=== PATIENT | female | born 1970 | race Caucasian/White ===

== ENCOUNTER 2020-01-23 13:11 | Emergency (ER) | payer OTHER, SELFPAY ==
[2020-01-23 13:26] VITALS: BP 144/77; PULSE 84; RESP 16; TEMP 36.7; O2SAT 98
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
== END 2020-01-23 14:03 | disposition home or self-care (01) ==
PROVIDERS: Emergency Provider Nurse Practitioner
DX: M54.2 Cervicalgia (principal); F17.210 Nicotine dependence, cigarettes, uncomplicated
CPT/HCPCS: 99213; G0463

== ENCOUNTER 2020-05-13 14:43 | Emergency (ER) | payer OTHER, SELFPAY ==
--- NOTE | ~2020-05-13 | XR_ITS ---
XR wrist RT min 3V DATE: 05/13/2020 15:31 INDICATION: Injury 10 days ago. Bilateral wrist pain TECHNIQUE: 4 views COMPARISON: None FINDINGS: There is severe narrowing as well as degenerative spurring at the radiocarpal joint. No fracture or dislocation, periosteal reaction or bone destruction. 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
--- NOTE | ~2020-05-13 | XR_ITS ---
XR elbow RT min 3V DATE: 05/13/2020 15:30 INDICATION: Injury 10 days ago. Bilateral elbow pain. TECHNIQUE: 4 views COMPARISON: None FINDINGS: No fracture or dislocation or joint effusion. No periosteal reaction or bone destruction. IMPRESSION: Negative Reviewed, dictated and finalized at location A. IMPRESSION: Negative
--- NOTE | ~2020-05-13 | XR_ITS ---
XR elbow LT min 3V DATE: 05/13/2020 15:30 INDICATION: Injury 10 days ago. Bilateral elbow pain TECHNIQUE: 4 views COMPARISON: None FINDINGS: No fracture or dislocation or joint effusion. No periosteal reaction or bone destruction. IMPRESSION: Negative Reviewed, dictated and finalized at location A. IMPRESSION: Negative
--- NOTE | ~2020-05-13 | XR_ITS ---
XR wrist LT min 3V DATE: 05/13/2020 15:28 INDICATION: Injury 10 days ago. Bilateral wrist pain TECHNIQUE: 4 views COMPARISON: None FINDINGS: No fracture or dislocation, periosteal reaction or bone destruction, erosive change or steve drocalcinosis. IMPRESSION: No fracture or dislocation Reviewed, dictated and finalized at location A. IMPRESSION: No fracture or dislocation
[2020-05-13 14:56] VITALS: BP 126/80; PULSE 88; RESP 20; TEMP 36.9; O2SAT 100
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
== END 2020-05-13 15:58 | disposition home or self-care (01) ==
PROVIDERS: Emergency Provider Nurse Practitioner
DX: S50.10XA Contusion of unspecified forearm, initial encounter (principal); Y08.89XA Assault by other specified means, initial encounter; S63.502A Unspecified sprain of left wrist, initial encounter; M19.031 Primary osteoarthritis, right wrist; F17.210 Nicotine dependence, cigarettes, uncomplicated
CPT/HCPCS: 73080; 73110; 99214; G0463

== ENCOUNTER 2020-08-24 15:26 | Emergency (ER) | payer OTHER, SELFPAY ==
--- NOTE | ~2020-08-24 | XR_ITS ---
EXAMINATION: XR chest 2V EXAM DATE: 08/24/2020 16:04 INDICATION: cough fever x 1 week . TECHNIQUE: Frontal and lateral projections of the chest obtained and reviewed. There is no prior dev dy for comparison. FINDINGS: The lungs are clear. There are no pleural effusions. The cardiomediastinal silhouette is within normal limits. There is no pneumothorax suspected. The bones and soft tissues are unremarkab le. IMPRESSION: No acute cardiopulmonary findings. Reviewed, dictated and finalized at location A. [employer]
[2020-08-24 15:28] VITALS: BP 126/68; PULSE 117; RESP 18; TEMP 36.8; O2SAT 100
--- NOTE | 2020-08-24 15:43 | ED.URI ---
HPI - URI/Sore Throat General Chief Complaint: Upper Respiratory Infection Stated Complaint: fever/tired Time Seen by Provider: 08/24/20 15:43 Source: patient Limitations: no limitations History of Present Illness HPI Narrative: Wanda Vargas is a 50 yo female with a PMH of lung mass of unknown etiology, to [facility] with complaint of fever, body aches, cough, congestion, with symptoms started 2 to 3 days ago. 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 EYES: Denies visual changes, redness, discharge. ENT: Denies rhinorrhea, congestion, sore throat, otalgia. CARDIOVASCULAR: Denies chest pain, palpitations, edema. RESPIRATORY: Denies dyspnea, wheezing, cough GASTROINTESTINAL: Denies abdominal pain, nausea, vomiting, diarrhea. GENITOURINARY: Denies dysuria, hematuria, abnormal discharge SKIN: Denies rash or itching. NEUROLOGIC: Denies numbness, or focal weakness. PSYCHIATRIC: Denies anxiety or depression. PMFSH Past Medical History Medical History Mass of lung Family History Family History Other No active medical problems Social History Social History Smoking packs per day: 0.5 Smoking cigarettes per day: 10.0 Smoking status: Current every day smoker Tobacco type: cigarettes Alcohol intake: never Gender identity (if verbalized by the patient): Female Comments At time of signature, I agree with nursing past medical, surgical, social and family history. There is no relevant family history pertinent to the presenting complaint. Exam Narrative: Exam Narrative: GENERAL: This is a well-nourished, well-developed patient, in m moderate distress. HEAD: normocephalic, atraumatic. EYES: Sclera clear/white. Vision is grossly intact. EARS: External ears normal, auditory canals clear and without drainage, TMs normal without perforation. Hearing grossly intact. NOSE: External nose normal without nasal discharge, nares without redness, no rhinorrhea. THROAT: Mucous membranes moist, posterior pharynx pink NECK: Neck supple, tender submandibular lymph nodes CARDIOVASCULAR: Tachycardic rate and rhythm without murmurs, gallops, or rubs. RESPIRATORY: Diminished to auscultation. Breath sounds equal bilaterally. No wheezes, rales, or rhonchi. GASTROINTESTINAL: Abdomen soft, non-tender, SKIN: warm, intact with no suspicious lesions or rash, good texture and turgor. NEURO: awake, alert, and oriented to person, place and time. There were no obvious focal neurologic abnormalities. Steady gait EXTREMITIES: Normal range of motion. BACK: Nontender without deformity Course Course Emergency Course: Has had fever congestion difficulty swallowing and shortness of breath for the last 2 to 3 days, states she feels ill Negative strep test, patient is complaining of shortness of breath and has questionable diminished breath sounds on right side chest x-ray done- no acute pulmonary processes UA done - Started on albuterol Tessalon Perles prednisone and Cepacol lozenges. Ibuprofen 600 mg for pain;will be sent for Covid testing-discussed quarantining and length of time that she will have to quarantine regardless if she has a positive or negative Covid test Vital Signs Vital signs: Vital Signs Temperature 98.3 F 08/24/20 15:28 Pulse Rate 117 H 08/24/20 15:28 Respiratory Rate 18 08/24/20 15:28 Blood Pressure 126/68 08/24/20 15:28 Pulse Oximetry 100 08/24/20 15:28 Temperature 98.3 F 08/24/20 15:28 Pulse Rate 117
[2020-08-24] MEDS: predniSONE 20 MG TABLET 60 MG PO (16:08)
== END 2020-08-24 17:00 | disposition home or self-care (01) ==
PROVIDERS: Emergency Provider Nurse Practitioner
DX: J06.9 Acute upper respiratory infection, unspecified (principal); Z20.828 Contact with and (suspected) exposure to other viral communicable diseases; F17.210 Nicotine dependence, cigarettes, uncomplicated; R91.8 Other nonspecific abnormal finding of lung field
CPT/HCPCS: 71046; 87077; 87081; 87086; 87088; 87186; 87880; 99213; G0463; J7512

== ENCOUNTER 2021-03-01 13:00 | Emergency (ER) | payer OTHER, SELFPAY ==
[2021-03-01 13:10] VITALS: BP 141/68; PULSE 90; RESP 20; TEMP 36.3; O2SAT 99
--- NOTE | 2021-03-01 13:19 | ED.BACK ---
HPI - Back Pain/Injury General Chief Complaint: Back Pain/Injury Stated Complaint: lower back pain Time Seen by Provider: 03/01/21 13:10 Source: patient and RN notes reviewed Mode of arrival: ambulatory Limitations: no limitations History of Present Illness HPI Narrative: Patient presents today complaining of low back pain x4 days after moving heavy cement statues in her yard. Denies radiation of pain. Denies numbness or tingling in the genitals or extremities. Denies any loss of bowel or bladder control. Currently rates her pain 7/10 and has been taking Aleve, ibuprofen, Tylenol, and leftover tramadol without relief. MD elicited complaint: back pain Related Data Home Medications Medication Instructions Recorded Confirmed omeprazole 20 mg DAILY 03/01/21 03/01/21 Allergies Allergy/AdvReac Type Severity Reaction Status Date / Time Penicillins Allergy Unknown Verified 07/19/16 12:23 Review of Systems Review of Systems: Narrative: CONSTITUTIONAL: Denies body aches, fever, chills, or sweats. EYES: Denies visual changes, redness, or discharge. ENT: Denies rhinorrhea, congestion, sore throat, or otalgia. CARDIOVASCULAR: Denies chest pain, palpitations, or edema. RESPIRATORY: Denies cough or dyspnea. GASTROINTESTINAL: Denies abdominal pain, nausea, vomiting, or diarrhea. GENITOURINARY: Denies dysuria or hematuria. SKIN: Denies rash, itching, or wounds. MUSCULOSKELETAL: Denies joint pain, or myalgia.+ Low back pain NEUROLOGIC: Denies headache, numbness, tingling, or weakness. PSYCH: Denies depression or anxiety. [facility] Past Medical History Medical History (Updated 03/01/21 @ 13:46 by Divine Hines, [facility], ) Anxiety Bipolar disorder Cervical radiculopathy Lumbar radiculopathy Mass of lung PTSD (post-traumatic stress disorder) Family History Family History Other No active medical problems Social History Social History Smoking packs per day: 0.5 Smoking cigarettes per day: 10.0 Smoking status: Current every day smoker Tobacco type: cigarettes Alcohol intake: never Gender identity (if verbalized by the patient): Female Comments At time of signature, I have reviewed and agree with nursing past medical, surgical, social and family history unless otherwise noted. Please see nursing chart for further information. There is no relevant family history pertinent to the presenting complaint Exam Narrative: Exam Narrative: GENERAL: Well-appearing, well-nourished, and in no acute distress. HEAD: Normocephalic, atraumatic. EYES: EOMI. No redness or drainage. Conjunctivae normal. ENT: Mucous membranes pink and moist. NECK: Normal AROM. CHEST: No respiratory distress. MUSCULOSKELETAL: No bony tenderness of the thoracic or lumbar spine. Mild bilateral lower lumbar paraspinal muscle tenderness. No SI joint tenderness. Distal sensation intact. Saddle sensation intact. Capillary refill normal. Foot push and pulls equal and strong. EXTREMITIES: Normal range of motion. No edema. SKIN: Warm, dry, no rash. Capillary refill normal. Normal skin turgor. NEURO: No focal deficits. Alert and oriented x3. Gait steady. PSYCH: Normal affect. No signs of depression or anxiety. Course Vital Signs Vital signs: Vital Signs Temperature 97.4 F L 03/01/21 13:10 Pulse Rate 90 03/01/21 13:10 Respiratory Rate 20 03/01/21 13:10 Blood Pressure 141/68 H 03/01/21 13:10 Pulse Oximetry 99 03/01/21 13:10 Temperature 97.4 F L 03/01/21 13:10 Pulse Rate 90 03/01/21 13:10 Respiratory Rate 20 03/01/21 13:10 Blood Pressure 141/68 H 03/01/21 13:10 Pulse Oximetry 99 03/01/21 13:10 Reviewed. Pt has been instructed to follow up with her PCP regarding her elevated blood pressure today. MDM - Back Pain/Injury Differential Diagnosis Differential diagnosis: Likely lumbar radiculopat
== END 2021-03-01 13:24 | disposition home or self-care (01) ==
PROVIDERS: Emergency Provider Nurse Practitioner
DX: S39.012A Strain of muscle, fascia and tendon of lower back, initial encounter (principal); X50.0XXA Overexertion from strenuous movement or load, initial encounter; M54.12 Radiculopathy, cervical region; M54.16 Radiculopathy, lumbar region; F17.210 Nicotine dependence, cigarettes, uncomplicated
CPT/HCPCS: 99213; G0463

== ENCOUNTER 2021-03-31 02:37 | Observation (INO) | payer OTHER, SELFPAY ==
[2021-03-31] VITALS (13 sets, daily range): BP systolic 86–113; BP diastolic 52–76; PULSE 82–127; RESP 15–26; TEMP 36.8–38; O2SAT 93–100; BMI 21.4
--- NOTE | ~2021-03-31 | CT_ITS ---
EXAMINATION: CT soft tissue neck chest wo EXAM DATE: 04/01/2021 11:04 INDICATION: Neck pain history of lung mass. Sore throat. TECHNIQUE: Spiral CT of the neck and chest was performed without contrast. Axial, coronal and sagit vinicius images of the neck were reviewed. Axial, coronal and sagittal images of the chest were reviewed. Coronal maximum intensity pixel images of chest reviewed. The dose-length product (DLP) for this e xamination was 648.63 mGy-cm. The exposure was tailored according to patient size (auto mA exposure control), and iterative reconstruction (ASIR) was used as additional dose reduction technique. There is no prior study for comparison. FINDINGS: NECK: The thyroid gland is unremarkable. The submandibular and parotid glands are symmetric. Ther e is no cervical lymphadenopathy. There are no masses identified. Epiglottis is normal in thickness . The airway is unremarkable. Parapharyngeal and pre-glottic fat planes are preserved. Limited ev aluation of cervical vessels on this noncontrast study. The orbits are unremarkable. Visualized s inuses and mastoid air cells are well aerated. Advanced lower cervical disc disease. CHEST: No suspicious lung opacities. Trace bilateral pleural effusions and dependent bibasilar subse gmental atelectasis. Tracheobronchial tree is patent. There is no mediastinal, hilar or axillary l ymphadenopathy. There is no pneumothorax. Heart normal in size. No evidence of coronary arteria l calcification. Mildly indistinct fat planes in the retroperitoneum, along the right kidney and gal lbladder, nonspecific. There is thoracic spondylosis without osteoblastic or osteolytic lesions iden tified. IMPRESSION: 1. Trace pleural effusions and adjacent subsegmental atelectasis. 2. Nonspecific indistinct retroperitoneal, right upper quadrant fat planes. Probably reactive but ar e there any abdominal symptoms or tenderness? Reviewed, dictated and finalized at location B. IMPRESSION: 1. Trace pleural effusions and adjacent subsegmental atelectasis. 2. Nonspecific indistinct retroperitoneal, right upper quadrant fat planes. Pr obably reactive but are there any abdominal symptoms or tenderness?
--- NOTE | ~2021-03-31 | XR_ITS ---
EXAMINATION: XR chest 2V 03/31/2021 03:23 INDICATION: Fever, chills and body aches PROCEDURE: 2 view chest COMPARISON: 08/24/2020 FINDINGS: The lungs are clear. The cardiomediastinal silhouette is within normal limits. There are no pleural effusions. There is no pneumothorax suspected. IMPRESSION: 1: NO ACUTE CARDIOPULMONARY DISEASE. Reviewed, dictated and finalized at location A.
--- NOTE | 2021-03-31 02:41 | ED.FEVER ---
HPI - Fever General Chief Complaint: Fever Stated Complaint: fever for a week Time Seen by Provider: 03/31/21 02:41 Source: patient Mode of arrival: ambulatory Limitations: no limitations History of Present Illness HPI Narrative: Patient is a 51-year-old female with a history of anxiety, bipolar disorder who presents for evaluation of fever, arthralgias, malaise, nausea and vomiting. Patient at the time of my assessment is quite tearful, states that she has pain all over her body. She reports fever maximum temperature 104 Fahrenheit which has been intermittent over the past 7 days. She reports urinary hesitancy and dysuria. She denies any upper abdominal pain. No chest pain. She reports headache pain, soreness in her back and soreness in her extremities. She denies any neck pain, vision changes. She reports sore throat, congestion and dry cough. Denies recent sick contacts. She is not vaccinated for Covid. Related Data Home Medications Medication Instructions Recorded Confirmed omeprazole 20 mg DAILY 03/01/21 03/01/21 Allergies Allergy/AdvReac Type Severity Reaction Status Date / Time Penicillins Allergy Unknown Anaphylactic Verified 03/31/21 02:47 Shock Review of Systems Review of Systems: Narrative: CONSTITUTIONAL: Reports fever and chills EYES: Denies visual changes, redness, or discharge. ENT: Reports rhinorrhea, congestion and sore throat CARDIOVASCULAR: Denies chest pain, palpitations, or edema. RESPIRATORY: Reports dry cough GASTROINTESTINAL: Denies abdominal pain, reports nausea and vomiting GENITOURINARY: Reports dysuria. Denies hematuria. Reports urinary hesitancy. SKIN: Denies rash or itching. MUSCULOSKELETAL: Reports back pain NEUROLOGIC: Reports headache without numbness or weakness PSYCHIATRIC: Reports anxiety PMFSH Past Medical History Medical History Anxiety Bipolar disorder Cervical radiculopathy Lumbar radiculopathy Mass of lung PTSD (post-traumatic stress disorder) Family History Family History Other No active medical problems Social History Social History Smoking packs per day: 0.5 Smoking cigarettes per day: 10.0 Smoking status: Current every day smoker Tobacco type: cigarettes Alcohol intake: never Gender identity (if verbalized by the patient): Female Sexual Orientation (if Verbalized by the Patient): Straight or Heterosexual Exam Narrative: Exam Narrative: GENERAL: Awake, alert, conversant, tearful HEAD: Normocephalic, atraumatic. EYES: PERRLA and EOMI. ENT: Nares clear, no rhinorrhea or epistaxis. Mucous membranes moist. NECK: Supple. CHEST: No respiratory distress, breathing even and non labored HEART: Tachycardic rate, sinus rhythm ABDOMEN:Non distended, tender throughout, no guarding, bilateral flank tenderness EXTREMITIES: Normal range of motion. No edema. SKIN: Warm, dry, no rash. NEURO:No focal deficits. Alert and oriented x3 Course Vital Signs Vital signs: Vital Signs Temperature 38.0 C H 03/31/21 02:44 Pulse Rate 127 H 03/31/21 02:44 Respiratory Rate 26 H 03/31/21 02:44 Blood Pressure 112/76 03/31/21 02:44 Pulse Oximetry 93 03/31/21 02:44 Temperature 37.6 C H 03/31/21 04:30 Pulse Rate 109 H 03/31/21 04:30 Respiratory Rate 15 03/31/21 04:30 Blood Pressure 113/68 03/31/21 04:30 Pulse Oximetry 100 03/31/21 04:30 MDM - Fever MDM Narrative Medical decision making narrative: Patient presenting for evaluation of general malaise, nausea vomiting, urinary symptoms. At the time of assessment, ABCs are intact and vital signs are notable for tachycardia, mild tachypnea and patient is febrile. Given concern for sepsis, IV access was obtained and blood cultures were drawn. Patient was given a 30 mL/kg fluid bolus. Patient was given IV antiemetic, pain
--- NOTE | 2021-03-31 02:51 | ECG_ITS ---
Measurements Intervals Miller Rate: 109 P: 73 SD: 114 QRS: 42 QRSD: 81 T: 66 QT: 326 QTc: 439 Interpretive Statements SINUS TACHYCARDIA WITH SHORT SD INTERVAL BASELINE ARTIFACT- V4-V5 ABNORMAL ECG Electronically Signed On 03-31-2021 6:35:36 CDT by Coleman Ramos D.O.
[2021-03-31 03:15] LABS: Basophils Absolute Auto 0.1 K/mm3 (0.0-0.1); Basophils Percent Auto 0.4 % (0.2-1.2); Eosinophils Percent Auto 0.1 % (0-4.4); Hematocrit 38.6 % (37.0-47.0); Hemoglobin 12.8 g/dL (12.0-15.0); Immature Granulocyte Absolute 0.25 K/mm3 (0.00-0.031); Immature Granulocyte Percent A 1.1 % (0-0.5); Lymphocytes Absolute Auto 3.42 K/mm3 (0.9-3.2); Mean Corpuscular HGB Conc 33.2 g/dl (32-36); Mean Corpuscular Hemoglobin 31.1 pg (26-34); Mean Corpuscular Volume 93.9 fl (80-100); Mean Platelet Volume 9.7 fl (7.4-10.4); Monocytes Absolute Auto 2.3 K/mm3 (0.1-0.6); Monocytes Percent Auto 10.3 % (2.6-8.5); Neutrophils Absolute Auto 16.6 K/mm3 (1.3-6.7); Neutrophils Percent Auto 73.1 % (45.5-73.1); Platelet Count Result 359 k/mm3 (150-375); Red Blood Count 4.11 M/mm3 (4.2-5.4); Red Cell Distribution Width 12.7 % (11.5-14.5); White Blood Count 22.8 K/mm3 (4.5-10.0)
[2021-03-31 03:28] LABS: Add Urine Microscopic? YES; Appearance Urine Cloudy (Clear); Bacteria Urine Trace /hpf; Bilirubin Urine Negative (Negative); Blood Urine 2+ (Negative); Color Urine Yellow (Yellow); Glucose Urine UA Negative (Negative); Ketones Urine Negative (Negative); Leukocyte Esterase Ur Negative LEU/UL (Negative); Mucus Urine Rare /lpf; Nitrate Urine Positive (Negative); Protein Urine 2+ mg/dL (Negative); RBC Urine 21-50 /hpf (0-2); Specific Grav Ur 1.019 (1.001-1.035); Squamous Epithelial Cell Urine Many /hpf (Few); Urobilinogen Urine Negative mg/dL (<2.0)
[2021-03-31] MEDS: MORPHINE SULFATE (*CRX) 4 MG/ML INJ IV PUSH ×4 (03:29→23:19)
[2021-03-31 03:37] LABS: Troponin I < 0.012 ng/mL (0.000-0.034)
[2021-03-31 04:04] LABS: Lactic Acid Reflex 1.5 mmol/L (0.7-2.1)
[2021-03-31 04:05] LABS: Alanine Aminotransferase 22 U/L (4-35); Albumin Level 4.2 g/dL (3.5-5.1); Alkaline Phosphatase 84 U/L (38-126); Anion Gap 12 mmol/L (8-16); Aspartate Amino Transferase 25 U/L (14-36); Bilirubin,Total 0.5 mg/dL (0.2-1.3); Blood Urea Nitrogen 11 mg/dL (7-17); CRP 24.6 mg/dL (<1.0); Carbon Dioxide 22 mmol/L (22-30); Chloride 98 mmol/L (98-107); Estimated CRCL calculation 67 ml/min; Estimated Glomerular Filt Rate > 60; Glucose 215 mg/dL (65-110); Potassium 3.7 mmol/L (3.4-5.0); Sodium 132 mmol/L (137-145)
[2021-03-31] MEDS: CIPROFLOXACIN 400 MG/D5W 200ML 200 ML 200 MG IVPB ×2 (04:29→15:38)
[2021-03-31] MEDS: SODIUM CHLORIDE 0.9% IV 1,000 ML 125 ML IV CONT ×2 (07:29→17:28)
--- NOTE | 2021-03-31 09:00 | ADMGEN ---
This patient, Wanda Vargas, was admitted to 3 [facility] Surg Room 302-01. Patient/family oriented to hospital policies and general routines including ID bracelet, bed and alarms, visiting hours, pain management, procedures, bathroom and other care routines, personal items, smoking policy, room service/diet, and visiting hours. Information on how to activate the Rapid Response Team has been discussed. Patient/Family are encouraged to report perceived risks to care and to ask questions if they do not understand what they are told or what they should do.
[2021-03-31 15:38] LABS: SARS-CoV-2 RNA PCR Negative
--- NOTE | 2021-03-31 16:50 | PM.IMHP ---
H&P: HPI History of Present Illness Date/Time: 03/31/21 16:50 Chief Complaint: Fever Narrative: Patient is a 51-year-old female with a history of anxiety, bipolar disorder who presents for evaluation of fever, arthralgias, malaise, nausea and vomiting. she reports a temperature of 104? F and has been going on since past 7 days. She also complains generalized body ache and soreness in her extremities and tiredness and fatigue. She was having some sore throat and neck pain for which she was seen ENT. 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 she is not vaccinated for COVID. Review of Systems Review of Systems: Narrative: - CONSTITUTIONAL: Denies weight loss, reports fever and chills. - HEENT: Denies changes in vision and hearing - RESPIRATORY: Denies SOB and cough. - CV: Denies palpitations and CP. - GI: Denies abdominal pain, nausea, vomiting and diarrhea. - : Denies dysuria and urinary frequency. - MSK: Denies myalgia and joint pain. - SKIN: Denies rash and pruritus. - NEUROLOGICAL: Denies headache and syncope. - PSYCHIATRIC: Denies recent changes in mood. Denies anxiety and depression. All systems reviewed & are unremarkable except as noted in HPI and below PMFSH Past Medical History Medical History (Updated 03/31/21 @ 16:55 by José Miguel Collier MD) Anxiety Bipolar disorder Cervical radiculopathy Lumbar radiculopathy Mass of lung PTSD (post-traumatic stress disorder) Family History Family History (Updated 03/31/21 @ 10:01 by Yanet Ware RN) Father Diabetes mellitus Social History Social History Smoking packs per day: 1 Smoking cigarettes per day: 20.0 Smoking status: Current every day smoker Tobacco type: cigarettes and e-cigarettes/vaping Alcohol intake: former Substance use: never Gender identity (if verbalized by the patient): Female Sexual Orientation (if Verbalized by the Patient): Straight or Heterosexual Spiritual care concerns: No Meds Home Medications and Allergies Home Medications Medication Instructions Recorded Confirmed Type cyclobenzaprine 10 mg PO TID PRN #20 tablet 03/01/21 03/31/21 Rx omeprazole 20 mg DAILY 03/01/21 03/31/21 History Allergies Allergy/AdvReac Type Severity Reaction Status Date / Time Penicillins Allergy Unknown Anaphylactic Verified 03/31/21 09:28 Shock Vital Signs Vital Signs - 24 hr 03/31/21 02:44 03/31/21 04:30 03/31/21 06:30 Temperature 100.4 F H 99.7 F H 99.0 F Pulse Rate 127 H 109 H Respiratory Rate 26 H 15 Blood Pressure 112/76 113/68 Pulse Oximetry 93 100 03/31/21 06:46 03/31/21 07:31 03/31/21 08:21 Temperature 98.8 F Pulse Rate 92 90 88 Respiratory Rate 22 H 15 16 Blood Pressure 90/67 L 95/65 L 86/57 L Pulse Oximetry 96 100 97 03/31/21 09:04 03/31/21 09:39 03/31/21 14:00 Temperature 98.2 F 98.3 F 100 F H Pulse Rate 87 82 99 Respiratory Rate 17 16 20 Blood Pressure 87/61 L 103/52 L 110/70 Pulse Oximetry 97 98 96 03/31/21 14:55 03/31/21 15:29 Temperature 100.0 F H 99.6 F Pulse Rate Respiratory Rate Blood Pressure Pulse Oximetry Exam Narrative: Exam Narrative: GENERAL: The patient is well developed, not in acute distress HEENT: Nonicteric sclerae, PERRLA, EOMI. Oropharynx clear. Moist mucous membranes. Conjunctivae appear well perfused. CHEST: Chest wall is nontender. HEART: Regular rate and rhythm without murmur, rubs, or gallops LUNGS: Clear to auscultation bilaterally. no respiratory distress ABDOMEN: Soft, positive bowel sounds, non-tender, no organomegaly. SKIN: No rash, no excessive bruising, petechiae, or purpura. NEUROLOGIC: Cranial nerves II-XII intact, alert and oriented x 3, no gross motor deficits EXTREMITIES: no edema, cyanosis or clubbing H&P: Results Labs Labs: Short CBC 03/31/21 Range/Units 03:06 WBC 22.8 H (4.5-10.0
[2021-03-31] MEDS: metroNIDAZOLE 500 MG/ISO 100ML 500 MG/100 ML BAG 100 MG IVPB (17:27)
[2021-04-01] MEDS: metroNIDAZOLE 500 MG/ISO 100ML 500 MG/100 ML BAG 100 MG IVPB ×2 (01:14→10:13)
[2021-04-01] MEDS: SODIUM CHLORIDE 0.9% IV 1,000 ML 125 ML IV CONT ×2 (01:15→13:09)
[2021-04-01] MEDS: ACETAMINOPHEN 500 MG TABLET 1000 MG PO (03:10)
[2021-04-01] MEDS: CIPROFLOXACIN 400 MG/D5W 200ML 200 ML 200 MG IVPB ×2 (03:11→15:35)
[2021-04-01 06:00] VITALS: BP 94/60; PULSE 91; RESP 18; TEMP 36.3; O2SAT 97
[2021-04-01 08:49] VITALS: BP 100/60
[2021-04-01 09:10] LABS: Basophils Absolute Auto 0.1 K/mm3 (0.0-0.1); Basophils Percent Auto 0.4 % (0.2-1.2); Eosinophils Absolute Auto 0.2 K/mm3 (0-0.3); Eosinophils Percent Auto 1.6 % (0-4.4); Hematocrit 32.5 % (37.0-47.0); Hemoglobin 10.6 g/dL (12.0-15.0); Immature Granulocyte Absolute 0.04 K/mm3 (0.00-0.031); Immature Granulocyte Percent A 0.4 % (0-0.5); Lymphocytes Absolute Auto 2.62 K/mm3 (0.9-3.2); Lymphocytes Percent Auto 23.3 % (18.3-44.2); Mean Corpuscular HGB Conc 32.6 g/dl (32-36); Mean Corpuscular Hemoglobin 30.7 pg (26-34); Mean Corpuscular Volume 94.2 fl (80-100); Mean Platelet Volume 9.7 fl (7.4-10.4); Monocytes Absolute Auto 1.2 K/mm3 (0.1-0.6); Monocytes Percent Auto 10.8 % (2.6-8.5); Neutrophils Absolute Auto 7.1 K/mm3 (1.3-6.7); Neutrophils Percent Auto 63.5 % (45.5-73.1); Platelet Count Result 278 k/mm3 (150-375); Red Blood Count 3.45 M/mm3 (4.2-5.4); Red Cell Distribution Width 12.6 % (11.5-14.5); White Blood Count 11.2 K/mm3 (4.5-10.0)
[2021-04-01 09:40] LABS: Anion Gap 7 mmol/L (8-16); Blood Urea Nitrogen 7 mg/dL (7-17); Calcium 8.3 mg/dL (8.4-10.2); Carbon Dioxide 22 mmol/L (22-30); Chloride 108 mmol/L (98-107); Estimated CRCL calculation 97 ml/min; Estimated Glomerular Filt Rate > 60; Glucose 127 mg/dL (65-110); Potassium 3.7 mmol/L (3.4-5.0); Sodium 137 mmol/L (137-145)
[2021-04-01 10:07] VITALS: BP 106/60
[2021-04-01 10:08] VITALS: TEMP 37.4
[2021-04-01] MEDS: ENOXAPARIN 40 MG/0.4 ML SYRINGE SUB-Q (10:12)
[2021-04-01] MEDS: PANTOPRAZOLE 40 MG TABLET BY MOUTH (10:12)
[2021-04-01] MEDS: MORPHINE SULFATE (*CRX) 4 MG/ML INJ IV PUSH (10:13)
[2021-04-01 14:00] VITALS: BP 99/60; PULSE 70; RESP 18; TEMP 36.4; O2SAT 98
--- NOTE | 2021-04-01 17:22 | PM.IMPN ---
Progress Note: A&P Assessment and Plan (1) Sepsis: Qualifiers: Sepsis acute organ dysfunction status: without acute organ dysfunction Sepsis type: sepsis due to unspecified organism Qualified Code(s): A41.9 - Sepsis, unspecified organism Code(s): A41.9 - Sepsis, unspecified organism Status: Acute (2) UTI (urinary tract infection): Qualifiers: Hematuria presence: with hematuria Urinary tract infection type: acute cystitis Qualified Code(s): N30.01 - Acute cystitis with hematuria Code(s): N39.0 - Urinary tract infection, site not specified Status: Acute (3) Neck pain: Code(s): M54.2 - Cervicalgia Status: Acute (4) Anxiety: Code(s): F41.9 - Anxiety disorder, unspecified Status: Inactive (5) Bipolar disorder: Code(s): F31.9 - Bipolar disorder, unspecified Status: Inactive (6) Cervical radiculopathy: Code(s): M54.12 - Radiculopathy, cervical region Status: Inactive (7) Mass of lung: Code(s): R91.8 - Other nonspecific abnormal finding of lung field Status: Inactive (8) Lumbar radiculopathy: Code(s): M54.16 - Radiculopathy, lumbar region Status: Inactive Additional Plan sepsis with mild hypotension improved with IV resuscitation in the ER will continue to monitor pancultured likely source genitourinary with positive UA. COVID swabbed awaiting resolved. Leukocytosis at 22,000 hyperglycemia noted as well mild hyponatremia at 132. elevated CRP at 24.6 normal lactic acid and negative troponin strep screen done in the ER presumptive negative Leukocytosis improved down to 11,[address] neck /chest reviewed no signs of mass or any underlying abscess in the throat or lymphadenopathy noted remains on Flagyl for anaerobic coverage allergy to penicillin Chest x-ray with no acute cardiopulmonary abnormality urinary tract infection on Cipro urine culture growing E coli await sensitivity History of lung mass CT chest reveals no lung mass Recent history of sore throat and continued neck pain CT neck reviewed which is unremarkable DVT prophylaxis Lovenox Full code Subjective Date/time seen: 04/01/21 17:22 Interval history: still does not feel too well. no fever since yesterday afternoon . No nausea vomiting appetite is poor diffuse body aches noted no shortness of breath or chest pain COVID swab came back negative Review of Systems Review of Systems: All systems reviewed & are unremarkable except as noted in HPI and below Exam Narrative: GENERAL: The patient is well developed, not in acute distress HEENT: Nonicteric sclerae, PERRLA, EOMI. Oropharynx clear. Moist mucous membranes. Conjunctivae appear well perfused. CHEST: Chest wall is nontender. HEART: Regular rate and rhythm without murmur, rubs, or gallops LUNGS: Clear to auscultation bilaterally. no respiratory distress ABDOMEN: Soft, positive bowel sounds, non-tender, no organomegaly. SKIN: No rash, no excessive bruising, petechiae, or purpura. NEUROLOGIC: Cranial nerves II-XII intact, alert and oriented x 3, no gross motor deficits EXTREMITIES: no edema, cyanosis or clubbing Objective Data Vital Signs Vital Signs: Vital Signs - 24 hr 03/31/21 20:00 03/31/21 22:00 04/01/21 06:00 Temperature 99.0 F 97.4 F L Pulse Rate 97 91 Respiratory Rate 20 18 18 Blood Pressure 103/64 94/60 L Pulse Oximetry 99 97 04/01/21 08:49 04/01/21 10:07 04/01/21 10:08 Temperature 99.3 F Pulse Rate Respiratory Rate Blood Pressure 100/60 106/60 Pulse Oximetry 04/01/21 14:00 Temperature 97.6 F Pulse Rate 70 Respiratory Rate 18 Blood Pressure 99/60 L Pulse Oximetry 98 Intake/Output Intake/Output: Intake & Output 03/29/21 03/30/21 03/31/21 04/01/21 23:59 23:59 23:59 23:59 Intake Total 4162 3760 Balance 4162 3760 Meds/Results Medications: Active Medications Generic Name Dose Route Start Last Admin Trade Name Freq
--- NOTE | 2021-04-01 18:23 | PM.DS ---
DS: Admitting Diagnosis Admitting Diagnosis sepsis DS: Discharge Diagnosis Discharge Diagnosis (1) Sepsis: Qualifiers: Sepsis acute organ dysfunction status: without acute organ dysfunction Sepsis type: sepsis due to unspecified organism Qualified Code(s): A41.9 - Sepsis, unspecified organism Code(s): A41.9 - Sepsis, unspecified organism Status: Acute (2) UTI (urinary tract infection): Qualifiers: Hematuria presence: with hematuria Urinary tract infection type: acute cystitis Qualified Code(s): N30.01 - Acute cystitis with hematuria Code(s): N39.0 - Urinary tract infection, site not specified Status: Acute (3) Neck pain: Code(s): M54.2 - Cervicalgia Status: Acute DS: Summary Hospital Course Hospital Course: Patient is a 51-year-old female with a history of anxiety, bipolar disorder who presents for evaluation of fever, arthralgias, malaise, nausea and vomiting. she reports a temperature of 104? F and has been going on since past 7 days. She also complains generalized body ache and soreness in her extremities and tiredness and fatigue. She was having some sore throat and neck pain for which she was seen ENT. 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 she is not vaccinated for COVID. Upon admission she was noted to be septic with lowest blood pressure and tachycardia. His given IV fluid resuscitation in the ER with improvement in her blood pressure. She was pancultured and her UA was positive for UTI. With her history of neck pain strep throat was done which came back negative. See also subsequently had a CT neck with her ongoing neck pain which came back negative. She also reports history of lung mass which she had never followed up and hand CT chest was done which came back negative for any mass. She had initial leukocytosis of 22,000 on admission with mild hyponatremia of 132 an elevated CRP at 24.6 with normal lactic acid and negative troponin. She was started on ciprofloxacin as she has allergy to penicillin. With her neck pain she did have empirically started on Flagyl for anaerobic problem is. Her leukocytosis improved down to 11,000 the next day. And her fever started to improve as well. COVID swab was done which came back negative. She was advised to continue further treatment is as inpatient care however she was adamant at getting discharge and hence she left against medical advise. Time Spent with Patient Time attestation: Total time spent providing and/or coordinating discharge services:40 mins Exam Narrative: GENERAL: The patient is well developed, not in acute distress HEENT: Nonicteric sclerae, PERRLA, EOMI. Oropharynx clear. Moist mucous membranes. Conjunctivae appear well perfused. CHEST: Chest wall is nontender. HEART: Regular rate and rhythm without murmur, rubs, or gallops LUNGS: Clear to auscultation bilaterally. no respiratory distress ABDOMEN: Soft, positive bowel sounds, non-tender, no organomegaly. SKIN: No rash, no excessive bruising, petechiae, or purpura. NEUROLOGIC: Cranial nerves II-XII intact, alert and oriented x 3, no gross motor deficits EXTREMITIES: no edema, cyanosis or clubbing DS: Data Data Completed and Pending Labs on day of discharge: Labs from last 24 hours 04/01/21 04/01/21 08:50 08:50 WBC 11.2 H RBC 3.45 L Hgb 10.6 L Hct 32.5 L MCV 94.2 MCH 30.7 MCHC 32.6 RDW 12.6 Plt Count 278 MPV 9.7 Immature Gran % (Auto) 0.4 Neut % (Auto) 63.5 Lymph % (Auto) 23.3 [place] % (Auto) 10.8 H Eos % (Auto) 1.6 Baso % (Auto) 0.4 Lymph # (Auto) 2.62 [place] # (Auto) 1.2 H Eos # (Auto) 0.2 Baso # (Auto) 0.1 Abs Immat Gran (auto) 0.04 H Absolute Neuts (auto) 7.1 H Absolute Nucleated RBC 0.0 Nucleated RBC % 0.0 Sodium 137 Potassium 3.7 Chloride 108 H Carbon Dioxide 22 Anion Gap 7 L BUN 7 Creatinine 0.60 L Estim
== END 2021-04-01 18:17 | disposition left against medical advice (07) ==
LOC: ANHED 05:12 → ANH3MEDSUR 11:02
PROVIDERS: Admitting Provider Internal Medicine; Emergency Provider Emergency Medicine; Visit Provider Internal Medicine
DX: A41.9 Sepsis, unspecified organism (principal); N30.01 Acute cystitis with hematuria; R50.9 Fever, unspecified; F41.9 Anxiety disorder, unspecified; F31.9 Bipolar disorder, unspecified; F17.210 Nicotine dependence, cigarettes, uncomplicated; M54.16 Radiculopathy, lumbar region; M54.2 Cervicalgia; R91.8 Other nonspecific abnormal finding of lung field; Z20.822 Contact with and (suspected) exposure to COVID-19
CPT/HCPCS: 36415; 70490; 71046; 71250; 80048; 80053; 81001; 83605; 84484; 85025; 86140; 87040; 87077; 87081; 87086; 87088; 87186; 87880; 93005; 96361; 96365; 96366; 96367; 96372; 96375; 96376; 99285; A9270; C9803; G0378; G0379; J0131; J0744; J1650; J2270; J7030; U0003; U0005

== ENCOUNTER 2021-05-20 17:52 | Emergency (ER) | payer OTHER, SELFPAY ==
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
[2021-05-20 18:05] VITALS: BP 103/76; PULSE 99; RESP 18; TEMP 36.8; O2SAT 99
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
== END 2021-05-20 20:03 | disposition home or self-care (01) ==
PROVIDERS: Emergency Provider Nurse Practitioner
DX: S00.91XA Abrasion of unspecified part of head, initial encounter (principal); M25.562 Pain in left knee; M54.5 Low back pain; M54.2 Cervicalgia; F17.290 Nicotine dependence, other tobacco product, uncomplicated; Y04.8XXA Assault by other bodily force, initial encounter
CPT/HCPCS: 29125; 72050; 72100; 73110; 73564; 99214; A4565; G0463

== ENCOUNTER 2021-05-26 16:32 | Emergency (ER) | payer OTHER, SELFPAY ==
[2021-05-26 16:37] VITALS: BP 115/78; PULSE 89; RESP 18; TEMP 36.7; O2SAT 98
--- NOTE | 2021-05-26 16:47 | ED.URI ---
HPI - URI/Sore Throat General Chief Complaint: Upper Respiratory Infection Stated Complaint: cough/ear pain Source: patient Mode of arrival: ambulatory Limitations: no limitations History of Present Illness HPI Narrative: Patient is a 51-year-old female who presents complaining of right ear pain and cough x4 to 5 days. She reports increased cough for the past 2 to 3 days. Patient reports that she is not vaccinated for Covid. Denies fever or known exposure to Covid. She denies taking [id number] medications prior to arrival. Patient reports she has a history of a lung mass but has not followed up over the past year. She denies all other complaints at this time. MD elicited complaint: cough Related Data Home Medications Medication Instructions Recorded Confirmed omeprazole 20 mg DAILY 03/01/21 05/26/21 Allergies Allergy/AdvReac Type Severity Reaction Status Date / Time Penicillins Allergy Severe Anaphylactic Verified 05/26/21 16:36 Shock Review of Systems Review of Systems: CONSTITUTIONAL: Denies fever, chills, or sweats. EYES: Denies visual changes, redness, or discharge. ENT: Denies rhinorrhea, congestion, sore throat, reports right otalgia CARDIOVASCULAR: Denies chest pain, palpitations, or edema. RESPIRATORY: Reports cough, denies dyspnea. GASTROINTESTINAL: Denies abdominal pain, nausea, vomiting, or diarrhea. GENITOURINARY: Denies dysuria or hematuria. SKIN: Denies rash or itching. MUSCULOSKELETAL: Denies back pain, joint pain, or myalgia. NEUROLOGIC: Denies headache, numbness, dizziness, or weakness. PSYCHIATRIC: Denies anxiety or depression. [facility] Past Medical History Medical History Anxiety Bipolar disorder Cervical radiculopathy Distal radius fracture, right Lumbar radiculopathy Mass of lung PTSD (post-traumatic stress disorder) UTI (urinary tract infection), uncomplicated Surgical History Surgical History History of knee surgery 2013, 2015, 2018 Family History Family History Father Diabetes mellitus Social History Social History Smoking packs per day: 1 Smoking cigarettes per day: 20.0 Smoking status: Current every day smoker Tobacco type: cigarettes and e-cigarettes/vaping Alcohol intake: current Substance use: never Substance use type: does not use Gender identity (if verbalized by the patient): Female Sexual Orientation (if Verbalized by the Patient): Straight or Heterosexual Spiritual care concerns: No Comments At the time of signature, I have reviewed and agree with nursing past medical, surgical, social, and family history unless otherwise noted. Please see nursing chart for further information. There is no relevant family history pertinent to the presenting complaint. Exam Narrative: GENERAL: Well-appearing, well-nourished, and in no acute distress. HEAD: Normocephalic, atraumatic. EYES: EOMI. No redness or drainage. Conjunctiva are normal. ENT: Mucous membranes pink and moist. Nares clear. No rhinorrhea. TMs normal bilaterally. Throat normal. Uvula midline. NECK: AROM. Supple. No lymphadenopathy. CHEST: No respiratory distress. Slightly diminished and coarse right lower lobe. HEART: Regular rate and rhythm. No murmur appreciated. Normal peripheral pulses. EXTREMITIES: Normal range of motion. No edema. SKIN: Warm, dry, no rash. NEURO: No focal deficits. Alert and oriented x3. Gait steady. PSYCH: Normal affect. No signs of depression or anxiety. MDM - URI/Sore Throat MDM Narrative Medical decision making narrative: Rapid Covid negative, Covid PCR sent at this time. Patient refused influenza swab. Patient encouraged to go for chest x-ray today as she has somewhat diminished and coarse lung sounds in right lower lobe. P
[2021-05-27 16:56] LABS: SARS-CoV-2 RNA PCR Negative
== END 2021-05-26 16:58 | disposition home or self-care (01) ==
PROVIDERS: Emergency Provider Nurse Practitioner
DX: J40 Bronchitis, not specified as acute or chronic (principal); J06.9 Acute upper respiratory infection, unspecified; Z20.822 Contact with and (suspected) exposure to COVID-19; F17.210 Nicotine dependence, cigarettes, uncomplicated; M54.12 Radiculopathy, cervical region; M54.16 Radiculopathy, lumbar region
CPT/HCPCS: 87426; 99213; C9803; G0463; U0003; U0005

== ENCOUNTER 2021-09-04 13:02 | Emergency (ER) | payer OTHER, SELFPAY ==
--- NOTE | ~2021-09-04 | XR_ITS ---
EXAMINATION: XR lumbar spine 2-3V EXAM DATE: 09/04/2021 15:03 INDICATION: Fall, back pain. TECHNIQUE: Lumber spine frontal, lateral, lateral L5-S1 projections for interpretation. There is no prior study for comparison. FINDINGS: Moderate to severe loss of the L5-S1 disc height, moderate at L4-5 and mild disc disease a t the other lumbar levels. Mild upper lumbar, moderate lower lumbar facet arthropathy. The vertebral body heights are maintained, no acute fracture is identified. Sacrum, sacroiliac joints, sacral arcua te lines are intact. IMPRESSION: 1. No acute lumbar fracture identified. 2. Overall moderate lower lumbar spondylosis. Reviewed, dictated and finalized at location A. RUMENT TESTER
--- NOTE | ~2021-09-04 | XR_ITS ---
EXAMINATION: XR chest 2V EXAM DATE: 09/04/2021 15:03 INDICATION: Fall, chest pain. TECHNIQUE: Frontal and lateral projections of the chest obtained and reviewed. Comparison is made to prior examination from 03/31/2021. FINDINGS: There are mild bony degenerative changes. There are no acute fractures identified. No conf luent consolidation, pneumothorax or pleural effusion suspected. Cardiomediastinal silhouette is norm al. IMPRESSION: No acute cardiopulmonary findings. Reviewed, dictated and finalized at location A. RT SETTER
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
[2021-09-04 14:20] VITALS: BP 124/77; PULSE 100; RESP 14; TEMP 36.2; O2SAT 97
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
[2021-09-04] MEDS: IBUPROFEN 400 MG TABLET 800 MG PO (15:05)
[2021-09-04] MEDS: HYDROcodone/acetaminophen (*CRX) 5-325 MG TABLET 1 TAB PO (15:05)
== END 2021-09-04 15:40 | disposition home or self-care (01) ==
LOC: ANHED 15:13
PROVIDERS: Emergency Provider Emergency Medicine
DX: S30.0XXA Contusion of lower back and pelvis, initial encounter (principal); M54.50 Low back pain, unspecified; F17.210 Nicotine dependence, cigarettes, uncomplicated; Y04.2XXA Assault by strike against or bumped into by another person, initial encounter
CPT/HCPCS: 71046; 72100; 73110; 73562; 99284; A9270

== ENCOUNTER 2021-09-17 18:57 | Emergency (ER) | payer OTHER, SELFPAY ==
--- NOTE | ~2021-09-17 | XR_ITS ---
XR chest 2V DATE: 09/17/2021 19:18 INDICATION: Central chest pain radiating to the left side and left arm for 4 days TECHNIQUE: PA and lateral chest COMPARISON: 09/04/2021 AP and lateral chest FINDINGS: Normal heart size. No hilar or mediastinal enlargement. Minimal infiltrate or atelectasis is suggested in the lung bases. The lungs otherwise appear clear. N o pleural effusion or pulmonary vascular congestion or pneumothorax. Included skeletal structures are unremarkable. IMPRESSION: Minimal infiltrate or atelectasis at the lung bases Reviewed, dictated and finalized at location J. MOSPRAY OPERATOR
[2021-09-17 19:02] VITALS: BP 113/81; PULSE 90; RESP 16; TEMP 36.3; O2SAT 100
--- NOTE | 2021-09-17 19:02 | ECG_ITS ---
Measurements Intervals [place] Rate: 84 P: 67 MN: 119 QRS: 41 QRSD: 85 T: 58 QT: 363 QTc: 430 Interpretive Statements SINUS RHYTHM WITH SINUS ARRHYTHMIA WITH SHORT [place] INTERVAL POSSIBLE LEFT ATRIAL ENLARGEMENT INCOMPLETE RIGHT BUNDLE BRANCH BLOCK BASELINE ARTIFACT- I, II, III, V4-V6 BORDERLINE ECG Electronically Signed On 09-17-2021 20:30:32 PERSONAL INSURANCE ADVISOR by Coleman Ramos D.O.
[2021-09-17 19:21] LABS: Basophils Absolute Auto 0.1 K/mm3 (0.0-0.1); Basophils Percent Auto 0.7 % (0.2-1.2); Eosinophils Absolute Auto 0.3 K/mm3 (0-0.3); Eosinophils Percent Auto 3.2 % (0-4.4); Hematocrit 38.6 % (37.0-47.0); Hemoglobin 12.8 g/dL (12.0-15.0); Immature Granulocyte Absolute 0.04 K/mm3 (0.00-0.031); Immature Granulocyte Percent A 0.4 % (0-0.5); Lymphocytes Absolute Auto 1.97 K/mm3 (0.9-3.2); Lymphocytes Percent Auto 19.1 % (18.3-44.2); Mean Corpuscular HGB Conc 33.2 g/dl (32-36); Mean Corpuscular Hemoglobin 32.2 pg (26-34); Mean Platelet Volume 9.8 fl (7.4-10.4); Monocytes Absolute Auto 0.8 K/mm3 (0.1-0.6); Monocytes Percent Auto 7.7 % (2.6-8.5); Neutrophils Absolute Auto 7.1 K/mm3 (1.3-6.7); Neutrophils Percent Auto 68.9 % (45.5-73.1); Platelet Count Result 280 k/mm3 (150-375); Red Blood Count 3.98 M/mm3 (4.2-5.4); Red Cell Distribution Width 13.7 % (11.5-14.5); White Blood Count 10.3 K/mm3 (4.5-10.0)
[2021-09-17 19:28] LABS: Alanine Aminotransferase 20 U/L (4-35); Albumin Level 3.8 g/dL (3.5-5.1); Alkaline Phosphatase 78 U/L (38-126); Anion Gap 4 mmol/L (8-16); Aspartate Amino Transferase 35 U/L (14-36); Bilirubin,Total 0.2 mg/dL (0.2-1.3); Blood Urea Nitrogen 19 mg/dL (7-17); Calcium 8.6 mg/dL (8.4-10.2); Carbon Dioxide 28 mmol/L (22-30); Chloride 104 mmol/L (98-107); Estimated CRCL calculation 75 ml/min; Estimated Glomerular Filt Rate > 60; Glucose 162 mg/dL (65-110); Lipase 105 U/L (23-300); Potassium 3.8 mmol/L (3.4-5.0); Sodium 136 mmol/L (137-145)
[2021-09-17 19:34] LABS: INR 0.9; Prothrombin Time 11.7 Seconds (11.1-14.7)
[2021-09-17 19:35] LABS: Partial Thromboplastin Time 25.2 SECONDS (22.3-36.8)
[2021-09-17 19:39] LABS: Troponin I < 0.012 ng/mL (0.000-0.034)
--- NOTE | 2021-09-17 20:21 | PC.NURSE ---
PT STATED THAT SHE WANTED TO LWBS. PT WAS TRIAGED. IV WAS REMOVED PRIOR TO LEAVING.ENCOURAGED TO SEEL TREATMENT IF NEEDED. PT AGREEABLE TO THIS
== END 2021-09-17 20:21 | disposition left against medical advice (07) ==
LOC: ANHED 20:47
PROVIDERS: Emergency Provider General Practice
DX: R07.9 Chest pain, unspecified (principal)
CPT/HCPCS: 36415; 71046; 80053; 83690; 84484; 85025; 85610; 85730; 93005; 99199

== ENCOUNTER 2021-09-22 13:43 | Emergency (ER) | payer OTHER, SELFPAY ==
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
[2021-09-22 13:55] VITALS: BP 139/91; PULSE 82; RESP 18; TEMP 36.3; O2SAT 100
--- NOTE | 2021-09-22 14:02 | ECG_ITS ---
Measurements Intervals [place] Rate: 102 P: 66 [place]: 120 QRS: 51 QRSD: 80 T: 68 QT: 357 QTc: 466 Interpretive Statements SINUS TACHYCARDIA INCOMPLETE RIGHT BUNDLE BRANCH BLOCK BORDERLINE ECG Electronically Signed On 09-22-2021 14:17:40 SUPERVISOR TYPE PHOTOGRAPHY by Coleman Ramos D.O.
[2021-09-22 14:25] LABS: Basophils Absolute Auto 0.1 K/mm3 (0.0-0.1); Eosinophils Absolute Auto 0.2 K/mm3 (0-0.3); Eosinophils Percent Auto 2.6 % (0-4.4); Hematocrit 40.6 % (37.0-47.0); Hemoglobin 13.4 g/dL (12.0-15.0); Immature Granulocyte Absolute 0.01 K/mm3 (0.00-0.031); Immature Granulocyte Percent A 0.1 % (0-0.5); Lymphocytes Absolute Auto 2.71 K/mm3 (0.9-3.2); Lymphocytes Percent Auto 35.4 % (18.3-44.2); Mean Corpuscular Hemoglobin 31.2 pg (26-34); Mean Corpuscular Volume 94.4 fl (80-100); Mean Platelet Volume 9.7 fl (7.4-10.4); Monocytes Absolute Auto 0.6 K/mm3 (0.1-0.6); Monocytes Percent Auto 7.2 % (2.6-8.5); Neutrophils Absolute Auto 4.1 K/mm3 (1.3-6.7); Neutrophils Percent Auto 53.7 % (45.5-73.1); Platelet Count Result 341 k/mm3 (150-375); Red Cell Distribution Width 13.4 % (11.5-14.5); White Blood Count 7.7 K/mm3 (4.5-10.0)
[2021-09-22 14:35] LABS: INR 0.8; Prothrombin Time 11.3 Seconds (11.1-14.7)
[2021-09-22 14:36] LABS: Partial Thromboplastin Time 27.4 SECONDS (22.3-36.8)
[2021-09-22 14:38] LABS: Alanine Aminotransferase 19 U/L (4-35); Albumin Level 4.3 g/dL (3.5-5.1); Alkaline Phosphatase 81 U/L (38-126); Anion Gap 7 mmol/L (8-16); Aspartate Amino Transferase 28 U/L (14-36); Bilirubin,Total 0.4 mg/dL (0.2-1.3); Blood Urea Nitrogen 21 mg/dL (7-17); Calcium 9.5 mg/dL (8.4-10.2); Carbon Dioxide 27 mmol/L (22-30); Chloride 103 mmol/L (98-107); Estimated CRCL calculation 75 ml/min; Estimated Glomerular Filt Rate > 60; Glucose 120 mg/dL (65-110); Lipase 76 U/L (23-300); Potassium 4.5 mmol/L (3.4-5.0); Sodium 137 mmol/L (137-145)
[2021-09-22 14:49] LABS: Troponin I < 0.012 ng/mL (0.000-0.034)
[2021-09-22 16:40] VITALS: BP 125/80; PULSE 87; TEMP 36.4; O2SAT 100
[2021-09-22 19:35] LABS: Troponin I < 0.012 ng/mL (0.000-0.034)
[2021-09-22 19:46] VITALS: BP 130/85; PULSE 92; TEMP 36.2; O2SAT 100
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
[2021-09-22] MEDS: KETOROLAC 30 MG/ML VIAL (*BKC) IM (20:49)
== END 2021-09-22 20:54 | disposition home or self-care (01) ==
PROVIDERS: Emergency Medicine; Emergency Provider Emergency Medicine; PCP Emergency Medicine
DX: S29.011A Strain of muscle and tendon of front wall of thorax, initial encounter (principal); S46.002A Unspecified injury of muscle(s) and tendon(s) of the rotator cuff of left shoulder, initial encounter; Z87.440 Personal history of urinary (tract) infections; F17.210 Nicotine dependence, cigarettes, uncomplicated; F17.290 Nicotine dependence, other tobacco product, uncomplicated; Y04.0XXA Assault by unarmed brawl or fight, initial encounter
CPT/HCPCS: 36415; 71046; 80053; 83690; 84484; 85025; 85610; 85730; 93005; 96372; 99284; A9270; J1885

== ENCOUNTER 2022-05-01 19:04 | Emergency (ER) | payer OTHER, SELFPAY ==
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
[2022-05-01 19:24] VITALS: BP 135/100; PULSE 97; RESP 20; TEMP 36.9; O2SAT 100
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
== END 2022-05-01 19:40 | disposition home or self-care (01) ==
PROVIDERS: Emergency Provider Nurse Practitioner Family
DX: M25.571 Pain in right ankle and joints of right foot (principal); F17.210 Nicotine dependence, cigarettes, uncomplicated; F17.290 Nicotine dependence, other tobacco product, uncomplicated
CPT/HCPCS: 73610; 99213; G0463

== ENCOUNTER 2022-05-10 07:44 | Emergency (ER) | payer OTHER, SELFPAY ==
[2022-05-10 07:46] VITALS: BP 128/89; PULSE 79; RESP 18; TEMP 37; O2SAT 100
[2022-05-10] MEDS: SULFAMETHOXAZOLE/TRIMETHOPRIM 800/160 MG DS TABLET 1 TAB PO (08:02)
--- NOTE | 2022-05-10 08:02 | ED.GENADULT ---
HPI - General Adult General Chief complaint: Unspecified Stated complaint: RT ARM PIT ABSCESS Source: RN notes reviewed History of Present Illness HPI narrative: Patient presents emergency department from home for right armpit abscess. Patient states symptoms began 3 days ago. States that she has had progressive swelling from the region with drainage states she did try to express some drainage yesterday with some purulent drainage expressed but continued to enlarge she notes some surrounding erythema patient states she had a subjective fever this morning for which she took Tylenol but not have measured temperature she denies any numbness or tingling in the extremities or any other symptoms Related Data Home Medications Medication Instructions Recorded Confirmed omeprazole 20 mg capsule,delayed 20 mg PO DAILY 03/01/21 05/01/22 release Allergies Allergy/AdvReac Type Severity Reaction Status Date / Time Penicillins Allergy Severe Anaphylactic Verified 05/01/22 19:07 Shock Review of Systems Review of Systems: Gen.: Denies fevers or chills Musculoskeletal reports right armpit pain Neuro: Denies numbness, tingling, weakness Skin: See HPI Endo: Denies DM PMFSH Past Medical History Medical History Anxiety Bipolar disorder Cervical radiculopathy Distal radius fracture, right Lumbar radiculopathy Mass of lung PTSD (post-traumatic stress disorder) UTI (urinary tract infection), uncomplicated Surgical History Surgical History History of knee surgery 2013, 2015, 2018 Family History Family History Father Diabetes mellitus Social History Social History Smoking packs per day: 1 Smoking cigarettes per day: 20.0 Smoking status: Current every day smoker Tobacco type: cigarettes and e-cigarettes/vaping Alcohol intake: current Substance use: never Substance use type: does not use Gender identity (if verbalized by the patient): Female Sexual Orientation (if Verbalized by the Patient): Straight or Heterosexual Spiritual care concerns: No Exam Narrative: Limited exam APPEARANCE: No acute distress, nontoxic, resting in bed Eyes: EOMI HEENT: Normocephalic, atraumatic, RESPIRATORY: No respiratory distress MUSCULOSKELETAl: Full range of motion of right shoulder elbow and wrist radial pulse 2+ neurovascular tact NEURO: Awake and alert. Following commands, speech normal, no focal deficits SKIN:: Warm, dry. Normal there is a 2.5 x 2.5 cm abscess in the right axilla with fluctuance and surrounding erythema that goes into the right medial arm but does not extend to the elbow and is not circumferential there is no active drainage Course Course Emergency Course: Discussed Dr. Jean Baptiste who came to look at the abscess in the ER post draining agrees with plan for Bactrim with follow-up as an Discussed with patient results of workup and diagnosis. Discussed need for follow-up with primary care, proper use of medication, and reasons to return to the emergency department. Patient understands and agrees to current treatment plan Vital Signs Vital signs: Vital Signs Temperature 98.6 F 05/10/22 07:46 Pulse Rate 79 05/10/22 07:46 Respiratory Rate 18 05/10/22 07:46 Blood Pressure 128/89 05/10/22 07:46 Pulse Oximetry 100 05/10/22 07:46 Oxygen Delivery Room Air 05/10/22 07:46 Temperature 98.6 F 05/10/22 07:46 Pulse Rate 87 05/10/22 10:08 Respiratory Rate 20 05/10/22 10:08 Blood Pressure 126/75 05/10/22 10:08 Pulse Oximetry 98 05/10/22 10:08 Oxygen Delivery Room Air 05/10/22 07:46 Procedures Abscess I/D other: Abcess I&D Additional Comments: Verbal consent was obtained prior to procedure. The abscess was cleaned with Betadine and
[2022-05-10 08:18] VITALS: RESP 18; O2SAT 98
[2022-05-10] MEDS: MORPHINE SULFATE (*CRX) 2 MG/ML INJ IV PUSH (08:24)
[2022-05-10 08:30] VITALS: BP 119/87; PULSE 88; RESP 18; O2SAT 98
[2022-05-10 09:38] LABS: Basophils Absolute Auto 0.1 K/mm3 (0.0-0.1); Basophils Percent Auto 0.7 % (0.2-1.2); Eosinophils Absolute Auto 0.3 K/mm3 (0-0.3); Eosinophils Percent Auto 2.7 % (0-4.4); Hematocrit 36.1 % (37.0-47.0); Hemoglobin 12.1 g/dL (12.0-15.0); Immature Granulocyte Absolute 0.03 K/mm3 (0.00-0.031); Immature Granulocyte Percent A 0.3 % (0-0.5); Lymphocytes Absolute Auto 2.68 K/mm3 (0.9-3.2); Lymphocytes Percent Auto 26.9 % (18.3-44.2); Mean Corpuscular HGB Conc 33.5 g/dl (32-36); Mean Corpuscular Hemoglobin 30.6 pg (26-34); Mean Corpuscular Volume 91.4 fl (80-100); Mean Platelet Volume 10.1 fl (7.4-10.4); Monocytes Absolute Auto 0.8 K/mm3 (0.1-0.6); Monocytes Percent Auto 8.1 % (2.6-8.5); Neutrophils Absolute Auto 6.1 K/mm3 (1.3-6.7); Neutrophils Percent Auto 61.3 % (45.5-73.1); Platelet Count Result 321 k/mm3 (150-375); Red Blood Count 3.95 M/mm3 (4.2-5.4); Red Cell Distribution Width 13.4 % (11.5-14.5)
[2022-05-10 10:03] LABS: Alanine Aminotransferase 11 U/L (6-35); Albumin Level 4.3 g/dL (3.5-5.1); Alkaline Phosphatase 83 U/L (38-126); Anion Gap 14 mmol/L (8-16); Aspartate Amino Transferase 23 U/L (14-36); Bilirubin,Total 0.5 mg/dL (0.2-1.3); Blood Urea Nitrogen 14 mg/dL (7-17); Carbon Dioxide 27 mmol/L (22-30); Chloride 99 mmol/L (98-107); Estimated CRCL calculation 96 ml/min; Estimated Glomerular Filt Rate > 60; Glucose 98 mg/dL (65-110); Lactic Acid Reflex 0.9 mmol/L (0.7-2.0); Potassium 3.6 mmol/L (3.4-5.0); Sodium 140 mmol/L (137-145)
[2022-05-10 10:08] VITALS: BP 126/75; PULSE 87; RESP 20; O2SAT 98
[2022-05-10 10:50] VITALS: BP 132/72; PULSE 73; RESP 18; O2SAT 97
== END 2022-05-10 10:52 | disposition home or self-care (01) ==
PROVIDERS: Emergency Provider Emergency Medicine
DX: L02.411 Cutaneous abscess of right axilla (principal); Z87.440 Personal history of urinary (tract) infections; F17.210 Nicotine dependence, cigarettes, uncomplicated; F17.290 Nicotine dependence, other tobacco product, uncomplicated
CPT/HCPCS: 10060; 36415; 80053; 83605; 85025; 96374; 99284; A9270; J2270

== ENCOUNTER 2022-07-17 15:41 | Emergency (ER) | payer OTHER, SELFPAY ==
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
--- NOTE | ~2022-07-17 | CT_ITS ---
EXAMINATION: CT cervical spine wo con DATE: 07/17/2022 16:30 INDICATION: Fall. Neck pain. TECHNIQUE: Computed tomography (CT) of the cervical spine was performed without intravenous contrast. Automated exposure control and iterative reconstruction technique were employed. Exam dose: 192.07 mGy-cm total exam DLP. COMPARISON: None FINDINGS: There is prominent reversal of cervical curvature. There is 2 mm anterolisthesis at C2-3 and C3-4. There is severe degenerative disc disease and 2.5 mm retrolisthesis at C4-5. There is severe degenerative disc disease and 2 mm retrolisthesis at C5-6. There is moderately severe degenerative disc disease and approximately 2.5 mm retrolisthesis at C6-7. C1 and C2 are normally aligned and the odontoid process is intact. No fracture or dislocation or locked facet or prevertebral soft tissue swelling is noted. There is degenerative change at the apophyseal joints throughout the cervical spine and uncovertebral joint spurring particularly at C4-5, C5-6 and C6-7. IMPRESSION: Prominent reversal of cervical curvature Cervical spondylosis including multilevel severe degenerative disc disease, retrolisthesis at C4-5, C 5-6 and C6 2 mm anterolisthesis at C2-3 and C3-4 No fracture or dislocation or locked facet Reviewed, dictated and finalized at [facility]. Reviewed, dictated and finalized at location [facility]. 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
--- NOTE | ~2022-07-17 | XR_ITS ---
XR sacrum coccyx min 2V DATE: 07/17/2022 16:37 INDICATION: Fall downstairs 3 days ago. Right pain. TECHNIQUE: AP, angled AP and lateral views COMPARISON: None FINDINGS: Moderate degenerative disc disease at L4-5 and severe degenerative disc disease at L5-S1. Osteopenia. No sacral or coccygeal fracture or bone destruction is evident. Normal alignment of the sacroiliac baudilio ints. IMPRESSION: Osteopenia No sacral or coccygeal fracture is detected Degenerative disc disease at L4-5 and particularly L5-S1 Reviewed, dictated and finalized at location [facility]. WORKER
[2022-07-17 15:46] VITALS: BP 128/101; PULSE 80; RESP 16; TEMP 36.6; O2SAT 100
[2022-07-17 16:00] VITALS: BP 134/90; PULSE 79; RESP 19; O2SAT 99
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
[2022-07-17] MEDS: SODIUM CHLORIDE 0.9% IV 1,000 ML 999 ML IV CONT (17:12)
[2022-07-17] MEDS: KETOROLAC 30 MG/ML VIAL (*BKC) IV PUSH (17:15)
[2022-07-17] MEDS: diazePAM INJ (*CRX) 10 MG/2 ML SYRINGE 5 MG IV PUSH (17:20)
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
--- NOTE | 2022-07-17 17:38 | PC.NURSE ---
Janae ansari notified
--- NOTE | 2022-07-17 17:40 | PC.NURSE ---
VM left for meds at this time
--- NOTE | 2022-07-17 17:45 | PC.NURSE ---
niurka with coty returned phone call will be here shortly
--- NOTE | 2022-07-17 18:00 | PC.NURSE ---
Reva with YAIMA at bedside
[2022-07-17 18:25] VITALS: BP 132/87; PULSE 62; RESP 16; O2SAT 99
--- NOTE | 2022-07-17 19:05 | PC.NURSE ---
Deputy Ayan Melendez @ [facility] Report
== END 2022-07-17 18:35 | disposition home or self-care (01) ==
PROVIDERS: Emergency Provider Emergency Medicine
DX: S16.1XXA Strain of muscle, fascia and tendon at neck level, initial encounter (principal); T74.21XA Adult sexual abuse, confirmed, initial encounter; Z87.440 Personal history of urinary (tract) infections; F17.210 Nicotine dependence, cigarettes, uncomplicated; F17.290 Nicotine dependence, other tobacco product, uncomplicated; M47.812 Spondylosis without myelopathy or radiculopathy, cervical region; M50.321 Other cervical disc degeneration at C4-C5 level; M85.88 Other specified disorders of bone density and structure, other site; M51.36 Other intervertebral disc degeneration, lumbar region; Y09 Assault by unspecified means; Y07.03 Male partner, perpetrator of maltreatment and neglect
CPT/HCPCS: 70450; 72125; 72220; 96361; 96374; 96375; 99284; J1885; J3360; J7030

== ENCOUNTER 2022-08-19 23:03 | Emergency (ER) | payer OTHER, SELFPAY ==
[2022-08-19 23:27] VITALS: BP 132/81; PULSE 107; RESP 16; TEMP 36.6; O2SAT 99
--- NOTE | 2022-08-20 02:11 | PC.NURSE ---
patient left at this time ambulates to exit with significant other
== END 2022-08-20 02:33 | disposition left against medical advice (07) ==
DX: S09.93XA Unspecified injury of face, initial encounter (principal)
CPT/HCPCS: 99199

== ENCOUNTER 2022-10-13 18:34 | Emergency (ER) | payer OTHER, SELFPAY ==
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
[2022-10-13 18:44] VITALS: BP 115/78; PULSE 84; RESP 18; TEMP 36.5; O2SAT 97
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
[2022-10-13] MEDS: LIDOCAINE 5% PATCH 1 PATCH TRANSDERM (20:41)
[2022-10-13] MEDS: oxyCODONE/ACETAMINOPHEN (*CRX) 5-325 MG TABLET 1 TABLET PO (20:42)
[2022-10-13 22:59] VITALS: BP 111/69; PULSE 86; RESP 20; TEMP 36.5; O2SAT 100
== END 2022-10-13 23:21 | disposition home or self-care (01) ==
PROVIDERS: Emergency Provider Preventive Medicine Aerospace Medicine
DX: M54.50 Low back pain, unspecified (principal); M25.512 Pain in left shoulder; F17.210 Nicotine dependence, cigarettes, uncomplicated; F41.9 Anxiety disorder, unspecified; F31.9 Bipolar disorder, unspecified
CPT/HCPCS: 72128; 72131; 73030; 99284; A9270

== ENCOUNTER 2022-11-06 16:29 | Emergency (ER) | payer OTHER, SELFPAY ==
[2022-11-06 17:03] VITALS: BP 119/87; PULSE 86; RESP 18; TEMP 36.7; O2SAT 100
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
[2022-11-06] MEDS: IBUPROFEN 400 MG TABLET 800 MG PO (17:30)
== END 2022-11-06 17:28 | disposition home or self-care (01) ==
PROVIDERS: Emergency Provider Nurse Practitioner Family
DX: M24.811 Other specific joint derangements of right shoulder, not elsewhere classified (principal); F17.290 Nicotine dependence, other tobacco product, uncomplicated
CPT/HCPCS: 99213; A4565; A9270; G0463

== ENCOUNTER 2023-01-15 19:48 | Emergency (ER) | payer OTHER, SELFPAY ==
[2023-01-15 19:58] VITALS: BP 140/92; PULSE 122; RESP 18; TEMP 36.7; O2SAT 100
[2023-01-15 20:00] VITALS: BP 140/92; PULSE 122; RESP 18; TEMP 36.7; O2SAT 100
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
[2023-01-15 20:27] VITALS: PULSE 89; O2SAT 97
== END 2023-01-15 20:27 | disposition home or self-care (01) ==
PROVIDERS: Emergency Provider Nurse Practitioner Family
DX: L02.416 Cutaneous abscess of left lower limb (principal); F17.290 Nicotine dependence, other tobacco product, uncomplicated
CPT/HCPCS: 99213; G0463

== ENCOUNTER 2023-02-03 13:33 | Emergency (ER) | payer OTHER, SELFPAY ==
--- NOTE | 2023-02-03 13:44 | PC.NURSE ---
Patient refused vitals and walked out of department. Patient denies SI/HI and was able to ambulate out.
== END 2023-02-03 13:57 | disposition left against medical advice (07) ==
DX: F10.129 Alcohol abuse with intoxication, unspecified (principal)
CPT/HCPCS: 99199

== ENCOUNTER 2023-03-23 14:47 | Emergency (ER) | payer OTHER, SELFPAY ==
--- NOTE | ~2023-03-23 | XR_ITS ---
EXAMINATION: [id number] Exam Date/Time: 03/23/2023 17:26 CDT HISTORY: right posterior rib pain Comparison: None available. RESULT: Lines, tubes, and devices: None. Lungs and pleura: Clear. Cardiothymic silhouette: Unremarkable. Other: No acute osseous or upper abdominal finding. IMPRESSION: No acute cardiopulmonary process. No acute osseous finding in the right ribs. Reviewed, dictated and finalized at location K.
--- NOTE | ~2023-03-23 | XR_ITS ---
EXAM: XR wrist RT min 3V DATE: 03/23/2023 17:47 HISTORY: pain . COMPARISON: 09/04/2021. FINDINGS: Normal mineralization. Old ulnar styloid fracture. No acute fracture or dislocation. No ly tic or blastic lesion. Chronic widening of the scapholunate interval and changes of DISI. Scattered o steoarthritic changes, moderate at the radiocarpal joint. No erosion or periosteal change. Soft tissu es within normal limits. IMPRESSION: No acute osseous finding in the right wrist. Reviewed, dictated and finalized at location K.
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
--- NOTE | ~2023-03-23 | XR_ITS ---
EXAMINATION: XR knee RT min 4V DATE: 03/23/2023 16:04 INDICATION: Right knee pain. TECHNIQUE: 4 views of right knee were obtained. COMPARISON: None. FINDINGS: Bone alignment is normal. No fracture. There is mild tricompartmental osteoarthritis charac terized by tiny osteophytes. No joint space narrowing. No knee joint effusion. IMPRESSION: 1. Mild right knee osteoarthritis. Reviewed, dictated and finalized at location A.
[2023-03-23 15:00] VITALS: BP 113/85; PULSE 83; RESP 20; TEMP 36.3; O2SAT 100
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
[2023-03-23] MEDS: KETOROLAC 30 MG/ML VIAL (*BKC) IV PUSH (18:06)
[2023-03-23] MEDS: HYDROcodone/acetaminophen (*CRX) 5-325 MG TABLET 1 TAB PO (18:06)
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
[2023-03-23 18:51] VITALS: BP 138/85; PULSE 104; RESP 18; O2SAT 97
== END 2023-03-23 20:02 | disposition home or self-care (01) ==
PROVIDERS: Emergency Provider Physician Assistant
DX: S83.91XA Sprain of unspecified site of right knee, initial encounter (principal); S69.91XA Unspecified injury of right wrist, hand and finger(s), initial encounter; S49.91XA Unspecified injury of right shoulder and upper arm, initial encounter; F17.210 Nicotine dependence, cigarettes, uncomplicated; Z87.440 Personal history of urinary (tract) infections; F17.290 Nicotine dependence, other tobacco product, uncomplicated; M17.11 Unilateral primary osteoarthritis, right knee; Y04.8XXA Assault by other bodily force, initial encounter
CPT/HCPCS: 71101; 73030; 73110; 73564; 96374; 99284; A9270; J1885

== ENCOUNTER 2023-08-09 06:21 | Emergency (ER) | payer OTHER, SELFPAY ==
--- NOTE | ~2023-08-09 | XR_ITS ---
Left ankle Technique: AP, oblique, and lateral views were obtained. Clinical History: Injury Findings: No acute fracture or dislocation is seen. Osseous alignment is anatomic. Ankle mortise and other visualized joint spaces are preserved. Soft tissues are otherwise unremarkable. Impression: Unremarkable left ankle. Reviewed, dictated and finalized at location . R HANDLER Impression: Unremarkable left ankle.
--- NOTE | ~2023-08-09 | XR_ITS ---
Left foot Technique: AP, oblique, and lateral views were obtained. Clinical History: Injury Findings: No acute fracture or dislocation is seen. Osseous alignment is anatomic. Joint spaces are p reserved without erosive or degenerative change. Soft tissues are unremarkable. Impression: Unremarkable left foot radiographs. Reviewed, dictated and finalized at location . [employer] Impression: Unremarkable left foot radiographs.
[2023-08-09 06:21] VITALS: BP 122/98; PULSE 93; RESP 22; O2SAT 100
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
[2023-08-09 08:41] VITALS: BP 121/88; PULSE 90; RESP 20; O2SAT 100
== END 2023-08-09 08:44 | disposition home or self-care (01) ==
PROVIDERS: Emergency Provider Emergency Medicine
DX: S99.912A Unspecified injury of left ankle, initial encounter (principal); F17.210 Nicotine dependence, cigarettes, uncomplicated; F17.290 Nicotine dependence, other tobacco product, uncomplicated; Z87.440 Personal history of urinary (tract) infections; Y09 Assault by unspecified means
CPT/HCPCS: 73610; 73630; 99283

== ENCOUNTER 2023-11-13 14:32 | Emergency (ER) | payer SELFPAY ==
[2023-11-13 14:43] VITALS: BP 118/84; PULSE 91; RESP 18; TEMP 36.8; O2SAT 100
--- NOTE | 2023-11-13 15:34 | ED.GENADULT ---
HPI - General Adult General Chief complaint: Upper Respiratory Infection Stated complaint: Cough,Congestion Time Seen by Provider: 11/13/23 15:34 Source: patient Mode of arrival: ambulatory Limitations: no limitations History of Present Illness HPI narrative: 53-year-old female patient presents to the [facility] with complaints of flu-like symptoms including chills, body aches, fevers, coughing, runny nose and congestion for the past 4-5 days. Patient denies taking any medication for symptoms. Related Data Allergies Allergy/AdvReac Type Severity Reaction Status Date / Time Penicillins Allergy Severe Anaphylactic Verified 11/13/23 15:04 Shock Review of Systems Review of Systems: CONSTITUTIONAL: Positive fever, chills, body aches and sweats. EYES: Denies visual changes, redness, or discharge. ENT: positive rhinorrhea, congestion, denies sore throat, denies otalgia. CARDIOVASCULAR: Denies chest pain, palpitations, or edema. RESPIRATORY: positive cough denies dyspnea. GASTROINTESTINAL: Denies abdominal pain, nausea, vomiting, or diarrhea. GENITOURINARY: Denies dysuria or hematuria. SKIN: Denies rash or itching. MUSCULOSKELETAL: Denies back pain, joint pain, or myalgia. NEUROLOGIC: Denies headache, numbness, or weakness. PSYCHIATRIC: Denies anxiety or depression. [facility] Past Medical History Medical History Anxiety Bipolar disorder Cervical radiculopathy Distal radius fracture, right Lumbar radiculopathy Mass of lung PTSD (post-traumatic stress disorder) UTI (urinary tract infection), uncomplicated Surgical History Surgical History History of knee surgery 2013, 2015, 2018 Family History Family History Father Diabetes mellitus Social History Social History Smoking packs per day: 1 Smoking cigarettes per day: 20.0 Smoking status: Current every day smoker Tobacco type: cigarettes and e-cigarettes/vaping Alcohol intake: current Substance use: never Substance use type: does not use Living arrangements: alone Occupation/Education: retired Gender identity (if verbalized by the patient): Female Sexual Orientation (if Verbalized by the Patient): Straight or Heterosexual Spiritual care concerns: No Comments At the time of my signature I agree with nursing past medical history, surgical, social, and family history. There is no relevant family history pertinent to the presenting complaint. Exam Narrative: GENERAL: Well-appearing, well-nourished, and in no acute distress. HEAD: Normocephalic, atraumatic. EYES: PERRLA and EOMI. ENT: Nares with erythema edema noted bilaterally with bilateral nares swollen shut, no rhinorrhea or epistaxis. Mucous membranes moist. posterior pharynx with no erythema, tonsillar enlargement, exudates or lesions present. There is postnasal drip noted. Bilateral TMs are clear no erythema or foreign bodies the canal. NECK: Supple. No lymphadenopathy CHEST: Clear to auscultation. No respiratory distress. Patient able talk in clear complete sentences no tripoding noted. HEART: Regular rate and rhythm. No murmur heard. Normal peripheral pulses. ABDOMEN: Soft, nontender, nondistended, normal active bowel sounds. EXTREMITIES: Normal range of motion. No edema. SKIN: Warm, dry, no rash. NEURO: No focal deficits. Alert and oriented x3. Course Course Level of Care: Express Care Visit Vital Signs Vital signs: Vital Signs Temperature 36.8 C 11/13/23 14:43 Pulse Rate 91 11/13/23 14:43 Respiratory Rate 18 11/13/23 14:43 Blood Pressure 118/84 11/13/23 14:43 Pulse Oximetry 100 11/13/23 14:43 Oxygen Delivery Room Air 11/13/23 14:43 Temperature 36.8 C 11/13/23 14:43 Pulse Rate 91 11/13/23 14:43 Respiratory Rat
== END 2023-11-13 15:49 | disposition home or self-care (01) ==
PROVIDERS: Emergency Provider Nurse Practitioner Family
DX: J10.1 Influenza due to other identified influenza virus with other respiratory manifestations (principal); Z20.822 Contact with and (suspected) exposure to COVID-19; F17.210 Nicotine dependence, cigarettes, uncomplicated; F17.290 Nicotine dependence, other tobacco product, uncomplicated
CPT/HCPCS: 87426; 87804; 99213; G0463